=== PATIENT | female | born 1960 ===

== ENCOUNTER 2017-06-08 11:47 | Observation (INO) | payer SELFPAY ==
[2017-06-08] MEDS ORDERED: Aspirin 81 MG Tab.Chew PO ONE (11:57)
--- NOTE | 2017-06-08 11:57 | EDM.PDOC ---
ED HPI GENERAL MEDICAL PROBLEM - General Chief Complaint: Chest Pain Stated Complaint: CHEST PAIN Time Seen by Provider: 06/08/17 11:57 Source of Information: Reports: Patient - History of Present Illness INITIAL COMMENTS - FREE TEXT/NARRATIVE: HISTORY AND PHYSICAL: History of present illness: []Patient presents with 5 out of 10 chest pressure/ache since this morning not associated with shortness of breath or diaphoresis Denies cardiac history no smoking or hypertension no known dyslipidemia or CAD History of hyperthyroidism with partial thyroidectomy History of a Review of systems: As per history of present illness and below otherwise all systems reviewed and negative. Past medical history: As per history of present illness and as reviewed below otherwise noncontributory. Surgical history: As per history of present illness and as reviewed below otherwise noncontributory. Social history: No reported history of drug or alcohol abuse. Family history: As per history of present illness and as reviewed below otherwise noncontributory. Physical exam: HEENT: Atraumatic, normocephalic, pupils reactive, negative for conjunctival pallor or scleral icterus, mucous membranes moist, throat clear, neck supple, nontender, trachea midline. Lungs: Clear to auscultation, breath sounds equal bilaterally, chest nontender. Heart: S1S2, regular, negative for clicks, rubs, or JVD. Abdomen: Soft, nondistended, nontender. Negative for masses or hepatosplenomegaly. Negative for costovertebral tenderness. Pelvis: Stable nontender. Genitourinary: Deferred. Rectal: Deferred. Extremities: Atraumatic, negative for cords or calf pain. Neurovascular unremarkable. Neuro: Awake, alert, oriented. Cranial nerves II through XII unremarkable. Cerebellum unremarkable. Motor and sensory unremarkable throughout. Exam nonfocal. Diagnostics: []Lab as below EKG Chest 1 view Therapeutics: Normal saline 1 25 mL per hour []Aspirin 324 mg chewable Nitroglycerin 0.4 g sublingual Impression: Atypical chest pain Mild anxiety concerning health Definitive disposition and diagnosis as appropriate pending reevaluation and review of above. 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 Chest pain Pain Score (Numeric/FACES): 5 - Related Data Allergies Allergy/AdvReac Type Severity Reaction Status Date / Time amoxicillin trihydrate Allergy Mild Nausea and Verified 06/08/17 11:50 [From Augmentin] Vomiting potassium clavulanate Allergy Mild Nausea and Verified 06/08/17 11:50 [From Augmentin] Vomiting Home Meds: Home Meds Chlorthalidone [Chlorthalidone] 0.5 tab PO DAILY 01/29/16 [History] Past Medical History Cardiovascular History: Reports: Hypertension Musculoskeletal History: Reports: Other (See Below) Other Musculoskeletal History: bulging disk in neck Social & Family History - Family History Family Medical History: Noncontributory - Tobacco Use Smoking Status *Q: Never Smoker - Recreational Drug Use Recreational Drug Use: No ED ROS GENERAL - Review of Systems Review Of Systems: ROS reveals no pertinent complaints other than HPI. ED EXAM, GENERAL - Physical Exam Exam: See Below Course - Vital Signs Last Recorded V/S: Last Vital Signs Temp 36.3 C 06/08/17 11:54 Pulse 93 06/08/17 12:48 Resp 18 06/08/17 12:48 BP 127/88 06/08/17 12:48 Pulse Ox 94 L 06/08/17 12:48 - Orders/Labs/Meds Orders: Active Orders 24 hr Category Date Time Status EKG Documentation Completion [RC] STAT Care 06/08/17 11:56 Active Chest 1V Frontal [CR] Stat Exams 06/08/17 11:56 Taken Sodium Chloride 0.9% [Normal Saline] 1,000 ml Med 06/08/17 12:00 Active IV ASDIRECTED Medication Orders Sodium Chloride (Normal Saline) 1,000 mls @ 125 mls/hr IV ASDIRECTED CHRISTIANO Last Admin: 06/08/17 12:19 Dose: 125 mls/hr Labs: Laboratory Tests 06/08/17 06/08/17 06/08/17 Range/Units 12:00 12:00 12:00 WBC 10.01 (4.0-11.0) K/uL RBC 4.62 (4.30-5.90) M/uL Hgb 14.3 (12.0-16.0) g/dL Hct 42.3 (36.0-46.0) % MCV 91.6 (80.0-98.0) fL MCH 31.0 (27.0-32.0) pg MCHC 33.8 (31.0-37.0) g/dL RDW Std Deviation 46.2 (28.0-62.0) fl RDW Coeff of Billy 14 (11.0-15.0) % Plt Count 311 (150-400) K/uL MPV 9.70 (7.40-12.00) fL Neut % (Auto) 81.3 H (48.0-80.0) % Lymph % (Auto) 12.7 L (16.0-40.0) % [place] % (Auto) 5.3 (0.0-15.0) % Eos % (Auto) 0.4 (0.0-7.0) % Baso % (Auto) 0.3 (0.0-1.5) % Neut # (Auto) 8.1 H (1.4-5.7) K/uL Lymph # (Auto) 1.3 (0.6-2.4) K/uL [place] # (Auto) 0.5 (0.0-0.8) K/uL Eos # (Auto) 0.0 (0.0-0.7) K/uL Baso # (Auto) 0.0 (0.0-0.1) K/uL Nucleated RBC % 0.0 /100WBC Nucleated RBCs # 0 K/uL Sodium (136-146) mmol/L Potassium (3.5-5.1) mmol/L Chloride (98-110) mmol/L Carbon Dioxide (21-31) mmol/L BUN (6.0-23.0) mg/dL Creatinine (0.6-1.5) mg/dL Est Cr Clr Drug Dosing mL/min Estimated GFR (MDRD) ml/min Glucose (60-110) mg/dL Calcium (8.8-10.8) mg/dL Total Bilirubin (0.1-1.5) mg/dL AST (5-40) IU/L ALT (8-54) IU/L Alkaline Phosphatase (40-150) Creatine Kinase 89 (9-236) IU/L CK-MB (CK-2) 1.3 (0-6.6) ng/ml Troponin I < 0.10 (0.0-0.29) NG/ML Total Protein (6.0-8.0) g/dL Albumin (3.5-5.0) g/dL Globulin (2.0-3.5) g/dL Albumin/Globulin Ratio (1.3-2.8) 06/08/17 Range/Units 12:00 WBC (4.0-11.0) K/uL RBC (4.30-5.90) M/uL Hgb (12.0-16.0) g/dL Hct (36.0-46.0) % MCV (80.0-98.0) fL MCH (27.0-32.0) pg MCHC (31.0-37.0) g/dL RDW Std Deviation (28.0-62.0) fl RDW Coeff of Billy (11.0-15.0) % Plt Count (150-400) K/uL MPV (7.40-12.00) fL Neut % (Auto) (48.0-80.0) % Lymph % (Auto) (16.0-40.0) % [place] % (Auto) (0.0-15.0) % Eos % (Auto) (0.0-7.0) % Baso % (Auto) (0.0-1.5) % Neut # (Auto) (1.4-5.7) K/uL Lymph # (Auto) (0.6-2.4) K/uL [place] # (Auto) (0.0-0.8) K/uL Eos # (Auto) (0.0-0.7) K/uL Baso # (Auto) (0.0-0.1) K/uL Nucleated RBC % /100WBC Nucleated RBCs # K/uL Sodium 141 (136-146) mmol/L Potassium 3.2 L (3.5-5.1) mmol/L Chloride 101 (98-110) mmol/L Carbon Dioxide 30 (21-31) mmol/L BUN 12 (6.0-23.0) mg/dL Creatinine 0.8 (0.6-1.5) mg/dL Est Cr Clr Drug Dosing 75.45 mL/min Estimated GFR (MDRD) > 60.0 ml/min Glucose 108 (60-110) mg/dL Calcium 9.9 (8.8-10.8) mg/dL Total Bilirubin 0.8 (0.1-1.5) mg/dL AST 30 (5-40) IU/L ALT 32 (8-54) IU/L Alkaline Phosphatase 67 (40-150) Creatine Kinase (9-236) IU/L CK-MB (CK-2) (0-6.6) ng/ml Troponin I (0.0-0.29) NG/ML Total Protein 7.9 (6.0-8.0) g/dL Albumin 4.5 (3.5-5.0) g/dL Globulin 3.4 (2.0-3.5) g/dL Albumin/Globulin Ratio 1.3 (1.3-2.8) Meds: Medications Generic Name Dose Route Start Last Admin Trade Name Freq PRN Reason Stop Dose Admin Sodium Chloride 1,000 mls @ 125 mls/hr 06/08/17 12:00 06/08/17 12:19 Normal Saline IV 125 mls/hr ASDIRECTED CHRISTIANO Administration Discontinued Medications Generic Name Dose Route Start Last Admin Trade Name Freq PRN Reason Stop Dose Admin Aspirin 324 mg 06/08/17 11:57 06/08/17 12:08 Aspirin PO 06/08/17 11:58 324 mg ONETIME ONE Administration Lorazepam 1 mg 06/08/17 13:10 Ativan IVPUSH 06/08/17 13:11 ONETIME ONE Nitroglycerin 0.4 mg 06/08/17 12:07 06/08/17 12:26 Nitrostat SL 06/08/17 12:18 0.4 mg Q5M PRN Administration Chest Pain Nitroglycerin 1 gm 06/08/17 12:38 06/08/17 12:45 Nitro-Bid 2% TOP 06/08/17 12:39 1 gm ONETIME ONE Administration Departure - Departure Time of Disposition: 13:16 Disposition: Refer to Observation Condition: Fair Clinical Impression: Atypical chest pain - Discharge Information Forms: ED Department Discharge - My Orders Last 24 Hours: My Active Orders 06/08/17 11:56 EKG Documentation Completion [RC] STAT Chest 1V Frontal [CR] Stat 06/08/17 12:00 Sodium Chloride 0.9% [Normal Saline] 1,000 ml IV ASDIRECTED - Assessment/Plan Last 24 Hours: My Active Orders 06/08/17 11:56 EKG Documentation Completion [RC] STAT Chest 1V Frontal [CR] Stat 06/08/17 12:00 Sodium Chloride 0.9% [Normal Saline] 1,000 ml IV ASDIRECTED
[2017-06-08] MEDS ORDERED: Sodium Chloride 0.9% 1,000 ML IV SCH (12:00)
[2017-06-08] MEDS: Nitroglycerin 0.4 MG Tab.SL SL PRN ×3 (12:13→12:26)
[2017-06-08] MEDS ORDERED: Nitroglycerin 2% Oint 1 GM UD Packet TOP ONE (12:38)
[2017-06-08 12:58] LABS: CHLORIDE,CL 101 mmol/L (98-110); SODIUM,NA 141 mmol/L (136-146)
[2017-06-08] MEDS ORDERED: LORazepam 2 MG/ML MDV IVPUSH ONE (13:10)
[2017-06-08] MEDS ORDERED: Pantoprazole 40 MG Vial IVPUSH ONE (13:25)
--- NOTE | 2017-06-08 14:23 | CR ---
EXAM DATE: 06/08/17 PATIENT'S AGE: 57 Patient: INES BOBBY Facility: [place], [place] Site . Site : [id number] Study: XRay Chest [id number]/27/2017 12:31:02 PM Ordering Physician: Iliana Bynum Final Report: INDICATION: Pain. Shortness breath. COMPARISON: none TECHNIQUE: Portable chest performed at 12:12 p.m. FINDINGS: The lungs are clear. There is no evidence of pneumothorax. The heart, mediastinum and pulmonary vessels are of normal size. There is no evidence of pleural fluid. IMPRESSION: Negative chest. Dictated by Rasta Cerna MD @ Jun 08 2017 12:39PM (Electronic Signature) Report Signed by Proxy. CLEMENT
[2017-06-08] MEDS ORDERED: Acetaminophen 325 MG Tab PO PRN (14:47)
[2017-06-08] MEDS ORDERED: Ondansetron 4 MG/2 ML SDV IVPUSH PRN (14:47)
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
[2017-06-08] MEDS ORDERED: Potassium Chloride 20 MEQ Tab.ER PO ONE (14:55)
[2017-06-08] MEDS ORDERED: LORazepam 0.5 MG Tab PO PRN (16:46)
[2017-06-08] MEDS ORDERED: Morphine 2 MG/ML Syringe IVPUSH PRN (16:54)
[2017-06-09] MEDS ORDERED: Chlorthalidone 25 MG Tab PO SCH (09:00)
[2017-06-09 11:17] VITALS: BP 126/74
== END 2017-06-09 11:20 | disposition home or self-care (01) ==
LOC: MW.ED 11:47 → MW.MS 13:17
PROVIDERS: ADMIT Internal Medicine; ATTEND Internal Medicine
DX: R07.89 Other chest pain (principal); F41.9 Anxiety disorder, unspecified; I10 Essential (primary) hypertension; E89.0 Postprocedural hypothyroidism; Z88.0 Allergy status to penicillin; Z79.899 Other long term (current) drug therapy; Z90.49 Acquired absence of other specified parts of digestive tract
CPT/HCPCS: 36415; 71010; 80053; 80061; 82550; 82553; 82962; 83036; 84484; 85025; 93005; 96361; 96374; 96375; 99285; A9270; C9113; G0378; J2060; J2270; J2405; J7040; 99282